=== PATIENT | female | born 1975 | race Caucasian/White ===

== ENCOUNTER 2018-03-31 23:59 | Emergency (ER) | payer MEDICAID ==
[~2018-03-31] VITALS: Ht 162.6 cm; Wt 49.9 kg
[~2018-03-31 23:59] MED LIST: ABILIFY DISCMEL15 MG PO; ACETAMINOPHEN-1 EAC1 PO; ALPRAZOLAM; ALPRAZOLAM 0.0.25 M1 PO; AMOXIL 875 MG875 M2 PO; DARVOCET-N 1001 EACH PO; EFFEXOR; HYDROCODON-ACE1 EAC7 PO; HYDROXYZINE HCL25 M1 PO; LAMICTAL 25 MG25 MG PO; NOHOMEMEDICATIONS; OLANZAPINE; SEROQUEL200 MG PO; TRAMADOL 50 MG50 MG PO; TRAZODONE; VISTARIL; XANAX XR1 MG PO
[2018-04-01 01:08] LABS: ABSOLUTE BASOPHILS 0.1 thou/uL (0.0-0.2); ABSOLUTE EOSINOPHILS 0.1 thou/uL (0.0-0.7); ABSOLUTE LYMPHOCYTES 2.3 thou/uL (0.8-5.3); ABSOLUTE MONOCYTES 0.7 thou/uL (0.0-1.2); ABSOLUTE NEUTROPHILS 7.5 thou/uL (1.6-8.1); BASOPHILS 0.9 %; EOSINOPHILS 1.1 %; HEMATOCRIT 34.8 % (37.0-47.0); HEMOGLOBIN 11.5 gm/dL (12.0-15.0); LYMPHOCYTES 21.7 %; MCH 28.6 pg (26.0-34.0); MCHC 33.1 g/dL (28.0-37.0); MCV 86.4 fL (80.0-100.0); MONOCYTES 6.7 %; MPV 7.9 fl. (7.2-11.1); NUCLEATED RBCS 0 /100WBC; PLATELET COUNT* 234 thou/uL (150-400); POLYS 69.6 %; RBC 4.03 mil/uL (4.20-5.00); RDW-CV 16.6 % (10.5-14.5); WBC 10.8 thou/uL (4.0-11.0)
[2018-04-01 01:15] LABS: CALCIUM 8.4 mg/dL (8.5-10.1); CREATININE 0.7 mg/dL (0.6-1.3); POTASSIUM 3.5 mmol/L (3.5-5.1)
[2018-04-01 01:18] LABS: URIC ACID* 3.3 mg/dL (2.6-7.2)
[2018-04-01] MEDS ORDERED: NORCO 7.5-3251 EACH PO (01:25)
[2018-04-01] MEDS ORDERED: INDOMETHACIN 2525 MG PO (01:25)
[2018-04-01 01:40] VITALS: BP 145/90
[2018-04-01 02:40] LABS: ESR (SEDRATE) 34 mm/hr (0-20)
== END 2018-04-01 01:41 | disposition home or self-care (01) ==
LOC: M.ERS 23:59
PROVIDERS: Emergency Medicine
DX: M25.471 Effusion, right ankle (principal); F32.9 Major depressive disorder, single episode, unspecified; F41.9 Anxiety disorder, unspecified; J44.9 Chronic obstructive pulmonary disease, unspecified

== ENCOUNTER 2018-05-21 21:06 | Emergency (ER) | payer MEDICAID ==
[~2018-05-21] VITALS: Ht 162.6 cm; Wt 54.4 kg
[~2018-05-21 21:06] MED LIST changes: +INDOMETHACIN 2525 MG PO; +NORCO 7.5-3251 EACH PO
[2018-05-21 22:22] LABS: ABSOLUTE BASOPHILS 0.1 thou/uL (0.0-0.2); ABSOLUTE EOSINOPHILS 0.2 thou/uL (0.0-0.7); ABSOLUTE LYMPHOCYTES 2.5 thou/uL (0.8-5.3); ABSOLUTE MONOCYTES 0.7 thou/uL (0.0-1.2); EOSINOPHILS 1.6 %; HEMATOCRIT 38.8 % (37.0-47.0); HEMOGLOBIN 12.4 gm/dL (12.0-15.0); MCH 27.3 pg (26.0-34.0); MCV 85.4 fL (80.0-100.0); MONOCYTES 5.4 %; MPV 8.2 fl. (7.2-11.1); NUCLEATED RBCS 0 /100WBC; PLATELET COUNT* 240 thou/uL (150-400); RBC 4.54 mil/uL (4.20-5.00); RDW-CV 18.3 % (10.5-14.5); WBC 12.5 thou/uL (4.0-11.0)
[2018-05-21 22:33] LABS: ANION GAP 7 mmol/L (7-16); BUN 13 mg/dL (7-18); CALCIUM 8.3 mg/dL (8.5-10.1); CHLORIDE 100 mmol/L (98-107); CO2 30 mmol/L (21-32); CREATININE 0.8 mg/dL (0.6-1.3); GLUCOSE 96 mg/dL (70-99); POTASSIUM 3.9 mmol/L (3.5-5.1); SODIUM 137 mmol/L (136-145)
[2018-05-21 22:38] LABS: APTT 25.4 Seconds (25.0-31.3); PROTIME 9.9 Seconds (9.20-11.50)
[2018-05-21 22:44] LABS: ALBUMIN 3.3 g/dL (3.4-5.0); ALKALINE PHOSPHATASE 72 U/L (46-116); LIPASE 121 U/L (73-393); NT-PRO BRAIN NAT PEPTIDE 287 pg/mL (<300); SGOT 14 U/L (15-37); SGPT 15 U/L (30-65); TOTAL BILIRUBIN 0.2 mg/dL (<0.1-1.0); TOTAL PROTEIN 7.6 g/dL (6.4-8.2); TROPONIN-I LEVEL <0.06 ng/mL (<0.06)
[2018-05-22] MEDS ORDERED: VENTOLIN HFA 1818 GM INH (00:35)
[2018-05-22] MEDS ORDERED: PREDNISONE 10 M10 MG PO (00:35)
[2018-05-22] MEDS ORDERED: TESSALON PERLE100 MG PO (00:35)
[2018-05-22] MEDS ORDERED: DOXYCYCLINE 10100 MG PO (00:35)
[2018-05-22 00:52] VITALS: BP 106/66
--- NOTE | 2018-05-22 13:07 | EKG ---
[place] [address] ELECTROCARDIOGRAM REPORT Name: JAMEL SANTA [id number] Admission: 05/21/18 Attend Phys: Discharge: 05/22/18 Date of : 71 Report #: [id number] THIS REPORT FOR: //name// [facility] ED Test Date: 2018-05-21 Test Time: 22:04:25 Pat Name: JAMEL SANTA Department: Room: Gender: F Preventive Medicine Officer: : 1975 Requested By: Radha Abad Order Number: [id number] MD: Albino Sanon Measurements Intervals Wheeler Rate: 86 P: 84 WV: 153 QRS: 51 QRSD: 99 T: 59 QT: 394 QTc: 472 Interpretive Statements Sinus rhythm Probable septal infarct, old No previous ECG available for comparison Electronically Signed On 05-22-2018 13:07:03 CDT by Albino Sanon [email or web address] <ELECTRONICALLY SIGNED> By: Albino Sanon MD, [facility] 05/22/18 [id number] Albino Sanon MD, FACC /EPI
== END 2018-05-22 00:52 | disposition home or self-care (01) ==
LOC: M.ERS 21:06
PROVIDERS: Physician Assistant
DX: J44.1 Chronic obstructive pulmonary disease with (acute) exacerbation (principal); R09.1 Pleurisy; F17.200 Nicotine dependence, unspecified, uncomplicated; I10 Essential (primary) hypertension; F41.9 Anxiety disorder, unspecified; F32.9 Major depressive disorder, single episode, unspecified

== ENCOUNTER 2018-06-06 10:41 | Emergency (ER) | payer MEDICAID ==
[~2018-06-06] VITALS: Ht 162.6 cm; Wt 54.4 kg
[~2018-06-06 10:41] MED LIST changes: +DOXYCYCLINE 10100 MG PO; +PREDNISONE 10 M10 MG PO; +TESSALON PERLE100 MG PO; +VENTOLIN HFA 1818 GM INH
[2018-06-06 10:54] VITALS: BP 123/81
[2018-06-06] MEDS ORDERED: KEFLEX500 M1 PO (10:55)
[2018-06-06] MEDS ORDERED: IBUPROFEN 800800 M1 PO (10:55)
[2018-06-06] MEDS ORDERED: BACTROBAN CREAM30 G1 TOP (11:24)
[2018-06-06] MEDS ORDERED: NORCO 5-325 TA1 EACH PO (11:24)
[2018-06-06] MEDS ORDERED: BACTRIM DS TAB1 EACH PO (11:24)
== END 2018-06-06 11:30 | disposition home or self-care (01) ==
LOC: M.ERS 10:41
DX: S01.511A Laceration without foreign body of lip, initial encounter (principal); F32.9 Major depressive disorder, single episode, unspecified; F41.9 Anxiety disorder, unspecified; J44.9 Chronic obstructive pulmonary disease, unspecified; W01.0XXA Fall on same level from slipping, tripping and stumbling without subsequent striking against object, initial encounter; Y93.89 Activity, other specified; Y92.89 Other specified places as the place of occurrence of the external cause; Y99.8 Other external cause status

== ENCOUNTER 2018-06-09 15:18 | Emergency (ER) | payer MEDICAID ==
[~2018-06-09] VITALS: Ht 162.6 cm; Wt 54.4 kg
[~2018-06-09 15:18] MED LIST changes: +BACTRIM DS TAB1 EACH PO; +BACTROBAN CREAM30 G1 TOP; +IBUPROFEN 800800 M1 PO; +KEFLEX500 M1 PO; +NORCO 5-325 TA1 EACH PO
[2018-06-09 15:26] VITALS: BP 109/76
== END 2018-06-09 15:38 | disposition home or self-care (01) ==
LOC: M.ERS 15:18
DX: S01.511D Laceration without foreign body of lip, subsequent encounter (principal); J44.9 Chronic obstructive pulmonary disease, unspecified; F41.9 Anxiety disorder, unspecified; F32.9 Major depressive disorder, single episode, unspecified; F17.210 Nicotine dependence, cigarettes, uncomplicated; W18.39XD Other fall on same level, subsequent encounter

== ENCOUNTER 2018-09-12 16:00 | Emergency (ER) | payer MEDICAID ==
[~2018-09-12] VITALS: Ht 162.6 cm; Wt 54.4 kg
[2018-09-12] MEDS ORDERED: NORCO 5-325 TA1 EACH PO (17:17)
[2018-09-12] MEDS ORDERED: CLEOCIN HCL150 MG PO (17:17)
[2018-09-12] MEDS ORDERED: LIDOCAINE VISC100 ML PO (17:17)
[2018-09-12 17:30] VITALS: BP 121/68
== END 2018-09-12 17:33 | disposition home or self-care (01) ==
LOC: M.ERS 16:00
DX: K04.7 Periapical abscess without sinus (principal); J44.9 Chronic obstructive pulmonary disease, unspecified; F41.9 Anxiety disorder, unspecified; F32.9 Major depressive disorder, single episode, unspecified; F17.210 Nicotine dependence, cigarettes, uncomplicated; Z88.8 Allergy status to other drugs, medicaments and biological substances

== ENCOUNTER → 2019-04-24 | Outpatient (CLI) | payer MEDICAID ==
[~2019-04-24] MED LIST changes: +CLEOCIN HCL150 MG PO; +LIDOCAINE VISC100 ML PO
== END ==
LOC: M.RAD 17:40
DX: J98.4 Other disorders of lung (principal)